=== PATIENT | female | born 1955 | race African-American/Black ===

== ENCOUNTER → 2018-10-28 | Outpatient (CLI) | payer OTHER | END | disposition home or self-care (01) | LOC: NUC 07:45 | DX: E11.8 Type 2 diabetes mellitus with unspecified complications (principal); M17.12 Unilateral primary osteoarthritis, left knee | CPT/HCPCS: 78306; 78315; A9503 ==

== ENCOUNTER 2019-02-01 06:36 | Day surgery (SDC) | payer OTHER ==
[2019-02-01] MEDS ORDERED: ONDANSETRON 4 MG INJ IV (08:30)
[2019-02-01] MEDS ORDERED: EPHEDrine 25 MG/5 ML SYG IV (08:30)
[2019-02-01] MEDS ORDERED: FENTAnyl 50 MCG/ML VIAL IV ×2 (08:30)
[2019-02-01] MEDS ORDERED: hydrALAzine 20 MG INJ IV (08:30)
[2019-02-01] MEDS ORDERED: LABETALOL HCL 20MG INJ IV (08:30)
[2019-02-01] MEDS ORDERED: LIDOCAINE 2% (SDV) 5 ML INJ (08:36)
[2019-02-01] MEDS ORDERED: PROPOFOL 60 ML (08:36)
== END 2019-02-01 15:40 | disposition home or self-care (01) ==
LOC: GIL 06:36
DX: Z12.11 Encounter for screening for malignant neoplasm of colon (principal); D12.7 Benign neoplasm of rectosigmoid junction; K57.30 Diverticulosis of large intestine without perforation or abscess without bleeding
CPT/HCPCS: 45380; 88305